=== PATIENT | male | born 1995 | race Native Hawaiian/Other Pacific Islander ===

== ENCOUNTER 2018-06-20 22:15 | Emergency (ER) | payer OTHER ==
[2018-06-20 22:27] VITALS: BP 123/77; PULSE 63; RESP 18; TEMP 98.6; O2SAT 100
--- NOTE | 2018-06-20 22:56 | C.PDOC ---
History Of Present Illness 23 year old male presents to the ED c/o right hernandez pain. Patient reports that while paying squash today he was accidentally hit on his right hernandez with the handle of the racquet approximately 2:30 hours ago. Patient reports he initially had no pain and was able to complete the game. Patient denies other injury, fall, trauma, weakness, numbness. Time Seen by Provider: 06/20/18 22:28 Chief Complaint (Nursing): Lower Extremity Problem/Injury History Per: Patient History/Exam Limitations: no limitations Onset/Duration Of Symptoms: Hrs (2:30) Current Symptoms Are (Timing): Still Present Severity: None Recent travel outside of the [place]: No Additional History Per: Patient - Ankle/Foot Description Of Injury: Struck With Object Past Medical History Reviewed: Historical Data, Nursing Documentation, Vital Signs Vital Signs: Last Vital Signs Temp 98.6 F 06/20/18 22:22 Pulse 63 06/20/18 22:22 Resp 18 06/20/18 22:22 BP 123/77 06/20/18 22:22 Pulse Ox 100 06/20/18 22:22 - Medical History PMH: No Chronic Diseases Surgical History: No Surg Hx Family History: States: Unknown Family Hx - Social History Hx Alcohol Use: Yes Hx Substance Use: No - Immunization History Hx Tetanus Toxoid Vaccination: Yes (2017) Hx Influenza Vaccination: No Hx Pneumococcal Vaccination: No Review Of Systems Constitutional: Negative for: Fever, Chills Eyes: Negative for: Vision Change Respiratory: Negative for: Cough, Shortness of Breath Gastrointestinal: Negative for: Nausea, Vomiting, Abdominal Pain Musculoskeletal: Positive for: Leg Pain Skin: Negative for: Rash Neurological: Negative for: Weakness, Numbness Physical Exam - Physical Exam Appears: Non-toxic, No Acute Distress Skin: Normal Color, Warm, Dry Head: Atraumatic, Normacephalic Eye(s): bilateral: Normal Inspection Extremity: Normal ROM, Tenderness (right hernandez), No Calf Tenderness, Capillary Refill (< 2 seconds), No Swelling, Other (3x3 cm hematoma to anterior right hernandez, ecchyosis) Extremity: Bilateral: Other (compartments soft) Pulses: Left Dorsalis Pedis: Normal, Right Dorsalis Pedis: Normal Neurological/Psych: Oriented x3, Normal Speech, Normal Cognition, Normal Motor, Normal Sensation Gait: Steady ED Course And Treatment O2 Sat by Pulse Oximetry: 100 (ON RA) Pulse Ox Interpretation: Normal Medical Decision Making Medical Decision Making: Plan: * Motrin 800 mg PO On re-exam, the patient is ambulatory with steady gait. Disposition - Disposition Referrals: [facility] [Outside] Disposition: HOME/ ROUTINE Disposition Time: 22:54 Condition: STABLE Additional Instructions: Follow up with the medical doctor within 1-2 days. Return if worsened. Prescriptions: Naproxen [Naprosyn] 500 mg PO BID #20 tab Instructions: Contusion (DC) Forms: [employer] (Georgian) - Clinical Impression Clinical Impression: Contusion of leg - PA / [employer] / Resident Statement MD/DO has reviewed & agrees with the documentation as recorded. - Scribe Statement The provider has reviewed the documentation as recorded by the Scribe Turner Ackerman All medical record entries made by the Scribe were at my direction and personally dictated by me. I have reviewed the chart and agree that the record accurately reflects my personal performance of the history, physical exam, medical decision making, and the department course for this patient. I have also personally directed, reviewed, and agree with the discharge instructions and disposition.
== END 2018-06-20 23:15 | disposition home or self-care (01) ==
LOC: C.ER 22:15 → SUPCPDRO 22:15 → C.ER 23:15
DX: S80.11XA Contusion of right lower leg, initial encounter (principal); W22.8XXA Striking against or struck by other objects, initial encounter; Y93.73 Activity, racquet and hand sports; Y92.39 Other specified sports and athletic area as the place of occurrence of the external cause